=== PATIENT | male | born 1985 | race American Indian/Alaskan Native ===

== ENCOUNTER 2018-10-17 22:01 | Emergency (ER) | payer OTHER ==
--- NOTE | 2018-10-17 22:10 | Emergency Department Report ---
Chief Complaint: Headache Stated Complaint: HEADACHE/WEAKNESS - HPI History of Present Illness: MCKENZIE frontal that began this afternoon no allergies generalized fatigue/weakness took excedrin with some relief no fever, neck pain, numbness, weakness, tingling no sick contacts feels similar to previous MCKENZIE on amlodipine 5 mg for HTN, does not take it as prescribed, has not taken it in a couple months BP is 177/95 in triage - Exam Vital Signs: Vital Signs 10/17/18 22:04 Temperature 98.0 F Pulse Rate 78 Respiratory 18 Rate Blood Pressure 177/95 O2 Sat by Pulse 100 Oximetry MSE screening note: Focused history and physical exam performed. ED Disposition for MSE Condition: Stable
[2018-10-17] MEDS ORDERED: TYLENOL PO ONE (22:53)
[2018-10-17 23:13] LABS: Basophils # (Auto) 0.1 K/mm3 (0.0-0.1); Eosinophils % (Auto) 0.6 % (0.0-4.3); Hematocrit 42.3 % (35.5-45.6); Hemoglobin 13.7 gm/dl (11.8-15.2); Lymphocytes # (Auto) 1.3 K/mm3 (1.2-5.4); Mean Corpuscular HGB Conc 32 % (32-34); Mean Corpuscular Volume 76 fl (84-94); Monocytes # (Auto) 0.5 K/mm3 (0.0-0.8); Monocytes % (Auto) 7.2 % (0.0-7.3); Platelet Count 204 K/mm3 (140-440); Red Cell Distribution Width 15.5 % (13.2-15.2)
[2018-10-17 23:27] LABS: INR 0.88 (0.87-1.13)
--- NOTE | 2018-10-17 23:28 | Emergency Department Report ---
ED Headache HPI - General Chief Complaint: Headache Stated Complaint: HEADACHE/WEAKNESS Time Seen by Provider: 10/17/18 22:35 Source: patient Exam Limitations: no limitations - History of Present Illness Initial Comments: 33-year-old male with no significant past medical history of hypertension and obesity presents to the ER with complaints of frontal headache and generalized w eakness since about noon. Symptoms started after he returned from his drive from [place]. Headache seemed to improve somewhat with Excedrin but still persisting. He states that his whole body felt heavy and weak which has mildly improved but still persists. He denies isolated chest pain, shortness of breath, blurred vision, nausea, vomiting, focal weakness, or numbness. Denies cough or cold symptoms or fever. He presents with elevated blood pressure and admits to noncompliance with his Norvasc 2 months. He states that his blood pressure at home has been normal despite medication noncompliance. Patient states he did not follow up due to lack of insurance. His insurance is recently reinstated. Allergies/Adverse Reactions: Allergies No Known Allergies Allergy (Unverified 10/17/18 22:04) Home Medications: Ambulatory Orders Butalb/Acetamin/Caff 50-325-40 [Fioricet] 1 tab PO Q6HR PRN #20 tab 10/18/18 Ibuprofen [Motrin] 800 mg PO Q8HR PRN #30 tablet 10/18/18 amLODIPine [Norvasc] 5 mg PO DAILY #30 tab 10/18/18 ED Review of Systems ROS: Stated complaint: HEADACHE/WEAKNESS Other details as noted in HPI Comment: All other systems reviewed and negative ED Past Medical Hx - Past Medical History Previous Medical History?: Yes Hx Hypertension: Yes - Surgical History Past Surgical History?: No - Social History Smoking Status: Never Smoker Substance Use Type: Alcohol - Medications Home Medications: Home Medications Medication Instructions Recorded Confirmed Last Taken Type Butalb/Acetamin/Caff 50-325-40 1 tab PO Q6HR PRN #20 tab 10/18/18 Unknown Rx [Fioricet] Ibuprofen [Motrin] 800 mg PO Q8HR PRN #30 tablet 10/18/18 Unknown Rx amLODIPine [Norvasc] 5 mg PO DAILY #30 tab 10/18/18 Unknown Rx ED Physical Exam - General Limitations: No Limitations - Other Other exam information: General: No limitations, patient is alert in no acute distress Head exam: Atraumatic, normocephalic Eyes exam: Normal appearance, pupils equal reactive to light, extraocular movements intact ENT: Moist mucous membrane Neck exam: Normal inspection, full range of motion, no meningismus nontender Respiratory exam: Clear to auscultation bilateral, no wheezes, rales, crackles Cardiovascular: Normal rate and rhythm, normal heart sounds Abdomen: Soft, nondistended, and nontender, with normal bowel sounds, no rebound, or guarding Extremity: Full range of motion normal inspection no deformity or tenderness or Back: Normal Inspection, full range of motion, no tenderness Neurologic: Alert, oriented x3, cranial nerves intact, no motor or sensory deficit Psychiatric: normal affect, normal mood Skin: Warm, dry, intact ED Course Vital Signs 10/17/18 10/17/18 10/17/18 22:04 22:27 23:32 Temperature 98.0 F 98.0 F Pulse Rate 78 84 65 Respiratory 18 18 17 Rate Blood Pressure 177/95 Blood Pressure 177/95 [Right] O2 Sat by Pulse 100 100 Oximetry 10/17/18 10/17/18 10/18/18 23:45 23:46 00:11 Temperature 98.2 F Pulse Rate 72 65 77 Respiratory 20 19 20 Rate Blood Pressure 152/86 Blood Pressure 152/86 [Right] O2 Sat by Pulse 96 98 98 Oximetry 10/18/18 10/18/18 10/18/18 00:12 00:16 00:30 Temperature Pulse Rate 62 55 L 61 Respiratory 24 23 16 Rate Blood Pressure Blood Pressure [Right] O2 Sat by Pulse 98 96 96 Oximetry 10/18/18 10/18/18 00:46 01:00 Temperature Pulse Rate 59 L 68 Respiratory 22 18 Rate Blood Pressure Blood Pressure [Right] O2 Sat by Pulse 98 97 Oximetry ED Medical Decision Making - Lab Data Result diagrams: 10/17/18 23:04 10/17/18 23:04 Lab Results 10/17/18 10/17/18 10/17/18 Range/Units 23:04 23:04 23:04 WBC 6.7 (4.5-11.0) K/mm3 RBC 5.60 H (3.65-5.03) M/mm3 Hgb 13.7 (11.8-15.2) gm/dl Hct 42.3 (35.5-45.6) % MCV 76 L (84-94) fl MCH 24 L (28-32) pg MCHC 32 (32-34) % RDW 15.5 H (13.2-15.2) % Plt Count 204 (140-440) K/mm3 Lymph % (Auto) 19.0 (13.4-35.0) % [place] % (Auto) 7.2 (0.0-7.3) % Eos % (Auto) 0.6 (0.0-4.3) % Baso % (Auto) 1.0 (0.0-1.8) % Lymph # 1.3 (1.2-5.4) K/mm3 [place] # 0.5 (0.0-0.8) K/mm3 Eos # 0.0 (0.0-0.4) K/mm3 Baso # 0.1 (0.0-0.1) K/mm3 Seg Neutrophils % 72.2 H (40.0-70.0) % Seg Neutrophils # 4.8 (1.8-7.7) K/mm3 PT 12.5 (12.2-14.9) Sec. INR 0.88 (0.87-1.13) Sodium 140 (137-145) mmol/L Potassium 4.1 (3.6-5.0) mmol/L Chloride 101.7 (98-107) mmol/L Carbon Dioxide 28 (22-30) mmol/L Anion Gap 14 mmol/L BUN 8 L (9-20) mg/dL Creatinine 1.0 (0.8-1.5) mg/dL Estimated GFR > 60 ml/min BUN/Creatinine Ratio 8 % Glucose 100 (75-100) mg/dL Calcium 9.4 (8.4-10.2) mg/dL Total Bilirubin 0.30 (0.1-1.2) mg/dL AST 18 (5-40) units/L ALT 22 (7-56) units/L Alkaline Phosphatase 90 (35-129) units/L Total Creatine Kinase 397 H (55-170) units/L CK-MB (CK-2) 1.7 (0.0-4.0) ng/mL CK-MB (CK-2) Rel Index 0.4 (0-4) Troponin T < 0.010 (0.00-0.029) ng/mL Total Protein 7.3 (6.3-8.2) g/dL Albumin 4.3 (3.9-5) g/dL Albumin/Globulin Ratio 1.4 % - EKG Data -: EKG Interpreted by Me EKG shows normal: sinus rhythm, axis (qrs 25), QRS complexes (qrsd 98), ST-T waves (no stemi) Rate: bradycardia (54) - EKG Data When compared to previous EKG there are: previous EKG unavailable - Radiology Data Radiology results: report reviewed (ct head: naf) - Medical Decision Making labs, ct, ekg unremarkable schulte further improved with tylenol plan to d/c with norvasc refill and schulte meds. f/u encouraged - Differential Diagnosis hypertensive emergency, anemia, viral syndrome, NE Critical Care Time: No Critical care attestation.: If time is entered above; I have spent that time in minutes in the direct care of this critically ill patient, excluding procedure time. ED Disposition Clinical Impression: Frontal headache, HTN (hypertension), Generalized weakness, Nonadherence to medication Disposition: TO HOME OR SELFCARE Is pt being admited?: No Does the pt Need Aspirin: No Condition: Stable Instructions: Hypertension (ED), Acute Headache (ED), Weakness (ED) Additional Instructions: Take the medication as prescribed. Follow up with your doctor or the clinic/doctor provided. Return if symptoms worsen as indicated by your discharge instructions Prescriptions: Butalb/Acetamin/Caff 50-325-40 [Fioricet] 1 tab PO Q6HR PRN #20 tab PRN Reason: Headache Ibuprofen [Motrin] 800 mg PO Q8HR PRN #30 tablet PRN Reason: Pain, Moderate (4-6) amLODIPine [Norvasc] 5 mg PO DAILY #30 tab Referrals: [facility] [Provider Group] - 3-5 Days TIARRA HURLEY MD [Staff Physician] - 3-5 Days Time of Disposition: 01:32
[2018-10-17 23:29] LABS: Creatine Kinase MB 1.7 ng/mL (0.0-4.0)
[2018-10-17 23:30] LABS: Alanine Aminotransferase 22 units/L (7-56); BUN/Creatinine Ratio 8; Blood Urea Nitrogen 8 mg/dL (9-20); Calcium 9.4 mg/dL (8.4-10.2)
[2018-10-17 23:31] LABS: Albumin 4.3 g/dL (3.9-5); Hemolysis Index 7
--- NOTE | 2018-10-18 01:25 | Cat Scan Report ---
PROCEDURE: CT HEAD/BRAIN WO CON TECHNIQUE: Computerized tomography of the head was performed without contrast material. CT DOSE LENGTH PRODUCT: mGycm HISTORY: schulte, gen weakness COMPARISONS: None . FINDINGS: Skull and scalp: Normal . Paranasal sinuses: Normal . Ventricles and subarachnoid spaces: Normal . Cerebrum: No evidence of hemorrhage, acute infarction or mass . Cerebellum and brainstem: No evidence of hemorrhage, acute infarction or mass . Vasculature: Normal . IMPRESSION: Normal Examination . This document is electronically signed by Zachary Fallon MD., October 18 2018 01:23:00 AM ET
[2018-10-18 01:48] VITALS: BP 158/87
== END 2018-10-18 01:49 | disposition home or self-care (01) ==
LOC: ED 22:01
DX: I10 Essential (primary) hypertension (principal); R53.1 Weakness; Z91.19 Patient's noncompliance with other medical treatment and regimen
CPT/HCPCS: 36415; 70450; 80053; 82550; 82553; 84484; 85025; 85610; 93005; 93010

== ENCOUNTER 2020-02-21 15:48 | Emergency (ER) | payer OTHER ==
--- NOTE | 2020-02-21 15:55 | Event Note ---
ED Screening Note ED Screening Note: ac htn feels his heart racing on norvasc This initial assessment/diagnostic orders/clinical plan/treatment(s) is/are subject to change based on patients health status, clinical progression and re- assessment by fellow clinical providers in the ED. Further treatment and workup at subsequent clinical providers discretion. Patient/guardian urged not to elope from the ED as their condition may be serious if not clinically assessed and managed. Initial orders include: cardiac work up
[2020-02-21 16:28] LABS: Basophils % (Auto) 0.5 % (0.0-1.8); Eosinophils # (Auto) 0.1 K/mm3 (0.0-0.4); Eosinophils % (Auto) 0.9 % (0.0-4.3); Hematocrit 45.5 % (35.5-45.6); Hemoglobin 14.2 gm/dl (11.8-15.2); Lymphocytes % (Auto) 34.5 % (13.4-35.0); Mean Corpuscular HGB Conc 31 % (32-34); Mean Corpuscular Volume 78 fl (84-94); Monocytes # (Auto) 0.4 K/mm3 (0.0-0.8); Monocytes % (Auto) 6.7 % (0.0-7.3); Platelet Count 180 K/mm3 (140-440); Red Blood Count 5.86 M/mm3 (3.65-5.03); Red Cell Distribution Width 16.6 % (13.2-15.2)
[2020-02-21 16:40] LABS: Alanine Aminotransferase 80 units/L (7-56); Albumin 4.6 g/dL (3.9-5); BUN/Creatinine Ratio 7; Blood Urea Nitrogen 7 mg/dL (9-20); Calcium 9.7 mg/dL (8.4-10.2); Hemolysis Index 15
--- NOTE | 2020-02-21 16:46 | XRay Report ---
CHEST 2 VIEWS INDICATION / CLINICAL INFORMATION: Chest Pain. COMPARISON: None available. FINDINGS: SUPPORT DEVICES: None. HEART / MEDIASTINUM: The heart size and pulmonary vasculature are normal. The aorta is normal in marie gonzalez. LUNGS / PLEURA: No significant pulmonary or pleural abnormality. No pneumothorax. ADDITIONAL FINDINGS: No significant additional findings. IMPRESSION: No acute findings. Signer Name: Huang Martinez MD Signed: 02/21/2020 4:42 PM Workstation Name: [id number]
[2020-02-21 17:51] VITALS: BP 164/100
--- NOTE | 2020-02-21 18:12 | Emergency Department Report ---
ED General Adult HPI - General Chief complaint: Weakness Stated complaint: BP HIGH Time Seen by Provider: 02/21/20 15:53 Source: patient Mode of arrival: Ambulatory Limitations: No Limitations - History of Present Illness Initial comments: This is a pleasant 34-year-old male presents emergency department chief complaint of elevated blood pressure reading today. Patient reports a history of hypertension and anxiety which he takes amlodipine. She reports he has been feeling a little bit weak. He took his amlodipine today and usually his blood pressure will decrease however it did not which he was concerned about. He denies any associated fever, chills, night sweats, headache, dizziness, blurry vision, nausea, vomiting, diarrhea, chest pain, shortness of breath, lower extremity edema or any other associated symptoms. Severity scale (0 -10): 3 - Related Data Previous Rx's Medication Instructions Recorded Last Taken Type Butalb/Acetamin/Caff 50-325-40 1 tab PO Q6HR PRN #20 tab 10/18/18 Unknown Rx [Fioricet] Ibuprofen [Motrin] 800 mg PO Q8HR PRN #30 tablet 10/18/18 Unknown Rx amLODIPine [Norvasc] 5 mg PO DAILY #30 tab 10/18/18 Unknown Rx amLODIPine 10 mg PO DAILY #30 tab 02/21/20 Unknown Rx Allergies Allergy/AdvReac Type Severity Reaction Status Date / Time No Known Allergies Allergy Unverified 10/17/18 22:04 ED Review of Systems ROS: Stated complaint: BP HIGH Other details as noted in HPI Comment: All other systems reviewed and negative Constitutional: weakness. denies: chills, fever Eyes: denies: eye pain, eye discharge, vision change ENT: denies: ear pain, throat pain Respiratory: denies: cough, shortness of breath, wheezing Cardiovascular: denies: chest pain, palpitations Endocrine: no symptoms reported Gastrointestinal: denies: abdominal pain, nausea, diarrhea Genitourinary: denies: urgency, dysuria Musculoskeletal: denies: back pain, joint swelling, arthralgia Skin: denies: rash, lesions Neurological: denies: headache, weakness, paresthesias Psychiatric: denies: anxiety, depression Hematological/Lymphatic: denies: easy bleeding, easy bruising ED Past Medical Hx - Past Medical History Hx Hypertension: Yes Additional medical history: HLD - Surgical History Past Surgical History?: No - Social History Smoking Status: Never Smoker - Medications Home Medications: Home Medications Medication Instructions Recorded Confirmed Last Taken Type Butalb/Acetamin/Caff 50-325-40 1 tab PO Q6HR PRN #20 tab 10/18/18 Unknown Rx [Fioricet] Ibuprofen [Motrin] 800 mg PO Q8HR PRN #30 tablet 10/18/18 Unknown Rx amLODIPine [Norvasc] 5 mg PO DAILY #30 tab 10/18/18 Unknown Rx amLODIPine 10 mg PO DAILY #30 tab 02/21/20 Unknown Rx ED Physical Exam - General Limitations: No Limitations General appearance: alert, in no apparent distress - Head Head exam: Present: atraumatic, normocephalic - Eye Eye exam: Present: normal appearance, PERRL, EOMI Pupils: Present: normal accommodation - ENT ENT exam: Present: normal exam, normal orophraynx, mucous membranes moist - Neck Neck exam: Present: normal inspection, full ROM. Absent: tenderness, meningismus - Respiratory Respiratory exam: Present: normal lung sounds bilaterally. Absent: respiratory distress, wheezes, rales, rhonchi, stridor - Cardiovascular Cardiovascular Exam: Present: regular rate, normal rhythm, normal heart sounds. Absent: systolic murmur, diastolic murmur, rubs, gallop - GI/Abdominal GI/Abdominal exam: Present: soft, normal bowel sounds - Rectal Rectal exam: Present: deferred - Extremities Exam Extremities exam: Present: normal inspection, full ROM, normal capillary refill. Absent: tenderness - Back Exam Back exam: Present: normal inspection, full ROM. Absent: tenderness, CVA tenderness (R), CVA tenderness (L) - Neurological Exam Neurological exam: Present: alert, oriented X3, CN II-XII intact, normal gait, other (Normal strength and sensation to the bilateral upper and lower extremities, normal [id number] and [id number], normal gait without ataxia, no focal neurologic deficits.) - Psychiatric Psychiatric exam: Present: normal affect, normal mood - Skin Skin exam: Present: warm, dry, intact, normal color. Absent: rash ED Course Vital Signs 02/21/20 02/21/20 15:55 17:50 Temperature 99.2 F Pulse Rate 115 H 90 Respiratory 19 16 Rate Blood Pressure 182/106 164/100 [Left] O2 Sat by Pulse 98 97 Oximetry ED Medical Decision Making - Lab Data Result diagrams: 02/21/20 16:06 02/21/20 16:06 Lab Results 02/21/20 02/21/20 Range/Units 16:06 16:06 WBC 5.9 (4.5-11.0) K/mm3 RBC 5.86 H (3.65-5.03) M/mm3 Hgb 14.2 (11.8-15.2) gm/dl Hct 45.5 (35.5-45.6) % MCV 78 L (84-94) fl MCH 24 L (28-32) pg MCHC 31 L (32-34) % RDW 16.6 H (13.2-15.2) % Plt Count 180 (140-440) K/mm3 Lymph % (Auto) 34.5 (13.4-35.0) % Ward % (Auto) 6.7 (0.0-7.3) % Eos % (Auto) 0.9 (0.0-4.3) % Baso % (Auto) 0.5 (0.0-1.8) % Lymph # 2.0 (1.2-5.4) K/mm3 Ward # 0.4 (0.0-0.8) K/mm3 Eos # 0.1 (0.0-0.4) K/mm3 Baso # 0.0 (0.0-0.1) K/mm3 Seg Neutrophils % 57.4 (40.0-70.0) % Seg Neutrophils # 3.4 (1.8-7.7) K/mm3 Sodium 137 (137-145) mmol/L Potassium 4.1 (3.6-5.0) mmol/L Chloride 98.6 (98-107) mmol/L Carbon Dioxide 25 (22-30) mmol/L Anion Gap 18 mmol/L BUN 7 L (9-20) mg/dL Creatinine 1.0 (0.8-1.5) mg/dL Estimated GFR > 60 ml/min BUN/Creatinine Ratio 7 % Glucose 122 H (75-100) mg/dL Calcium 9.7 (8.4-10.2) mg/dL Total Bilirubin 0.30 (0.1-1.2) mg/dL AST 39 (5-40) units/L ALT 80 H (7-56) units/L Alkaline Phosphatase 85 (35-129) units/L Troponin T < 0.010 (0.00-0.029) ng/mL Total Protein 7.8 (6.3-8.2) g/dL Albumin 4.6 (3.9-5) g/dL Albumin/Globulin Ratio 1.4 % - EKG Data -: EKG Interpreted by Me EKG shows normal: sinus rhythm Rate: normal - EKG Data Interpretation: normal EKG (Normal sinus rhythm with a ventricular rate of 93 bpm, no acute ST or T wave abnormalities, no STEMI, normal axis, normal intervals, no ectopy.) - Radiology Data Radiology results: report reviewed No acute findings per radiology - Medical Decision Making Patient nontoxic in no acute distress. Initially patient is hypertensive and slightly tachycardic. EKG was unremarkable. Cardiac enzymes were unremarkable. Labs relatively normal with normal kidney function, liver function, electrolytes and negative troponin. Suspect this may partially been related to anxiety. Repeated his blood pressure and it was trending downward. Educated that he may require 10 mg of amlodipine daily, also educated him about low-salt diet and exercise and portion control. Recommend he follow-up with his primary care doctor and return the [facility] department any change or worsening symptoms. Educated him about the [place] [employer] of emergency physician guidelines for asymptomatic hypertension. He verbalized understanding the diagnosis, treatment plan and follow-up instructions all of his questions were answered. - Differential Diagnosis Hypertension, viral syndrome, anxiety, Critical care attestation.: If time is entered above; I have spent that time in minutes in the direct care of this critically ill patient, excluding procedure time. ED Disposition Clinical Impression: Asymptomatic hypertension Disposition: DC-01 TO HOME OR SELFCARE Is pt being admited?: No Condition: Stable Instructions: Hypertension (ED) Prescriptions: amLODIPine 10 mg PO DAILY #30 tab Referrals: GERMAN MERRITT [Primary Care Provider] - 3-5 Days Forms: Work/School Release Form(ED) Time of Disposition: 18:12
== END 2020-02-21 18:38 | disposition home or self-care (01) ==
LOC: ED 15:48
DX: I10 Essential (primary) hypertension (principal); Z79.1 Long term (current) use of non-steroidal anti-inflammatories (NSAID); Z79.899 Other long term (current) drug therapy
CPT/HCPCS: 36415; 71046; 80053; 84484; 85025; 93005